=== PATIENT | female | born 1990 | race Hispanic/Latino ===

== ENCOUNTER 2020-05-22 14:44 | Outpatient (CLI) | payer OTHER ==
--- NOTE | 2020-05-22 15:33 | ULT ---
OB ULTRASOUND: HISTORY: anatomy FINDINGS: A single live intrauterine gestation is seen with measurements corresponding to an estimated gestatio nal age of 19 weeks 2 daysand SHYANNE at 10/14/2020. The estimated weight measures 58 g or 9 ounces (4% by Hadlock criteria). biometry: BPD: 4.5 x 3 cm, 19 weeks 5 days HC: 16.61 cm, 19 weeks 3 days AC: 12.62 cm, 18 weeks 2 days FL: 3.0 cm, 19 weeks 2 days heart rate: 155bpm Placenta: Anterior Placenta previa: No Amniotic fluid: Adequate Cervical length: 3.9cm A three-vessel cord, cord insertion, kidneys, urinary bladder, stomach, 4 chambered heart, late ral ventricles, cerebellum, spine, lips/nose, upper and lower extremities are visualized. No definite anomalies are seen. IMPRESSION: Single live intrauterine gestation of 19 weeks 2 daysestimated gestational age and SHYANNE at 10/04/2020
== END 2020-05-22 14:45 | disposition home or self-care (01) ==
LOC: BICULT 14:44
PROVIDERS: ATTEND Family Medicine
DX: O09.892 Supervision of other high risk pregnancies, second trimester (principal); Z3A.19 19 weeks gestation of pregnancy
CPT/HCPCS: 76805

== ENCOUNTER 2020-09-28 08:01 | Outpatient (CLI) | payer OTHER ==
[2020-09-29 11:10] LABS: SARS-CoV-2 MS2 Positive; SARS-CoV-2 N Gene Negative; SARS-CoV-2 S Gene Negative; SARS-CoV-2 by NAA Not Detected (NotDetected); SARS-CoV-2 orf1ab Negative
== END 2020-09-28 08:02 | disposition home or self-care (01) ==
LOC: LABBT 08:01
PROVIDERS: ATTEND Family Medicine
DX: Z20.828 Contact with and (suspected) exposure to other viral communicable diseases (principal)
CPT/HCPCS: 87635; U0003

== ENCOUNTER 2020-10-02 10:05 | Inpatient (IN) | payer MEDICAID, OTHER, SELFPAY ==
[2020-10-02 11:04] VITALS: BMI 35.2
[2020-10-02] MEDS ORDERED: Famotidine/PF 20 mg/2ml Vial SLOW IVP PRN (11:04)
[2020-10-02] MEDS ORDERED: Ondansetron PF 4 MG/2 ML Vial IVP PRN ×2 (11:04→12:54)
[2020-10-02] MEDS ORDERED: Bicitra 30 ML UDCUP PO PRN (11:04)
[2020-10-02] MEDS ORDERED: hydrALAZINE 20 MG/ML VIAL SLOW IVP PRN ×2 (11:04→14:49)
[2020-10-02] MEDS ORDERED: Promethazine HCl 25 MG/ML VIAL IM PRN ×3 (11:04→14:49)
[2020-10-02] MEDS ORDERED: Lactated Ringer's 1,000 ML IV SCH (11:04)
[2020-10-02] MEDS ORDERED: CEFAZOLIN 2 GM in Premix Bag 1 BAG IVPB SCH (11:04)
[2020-10-02 11:28] LABS: Hemoglobin 12.3 g/dL (12.0-16.0); Mean Corpuscular HGB CONC 34.7 g/dL (32.0-36.0); Mean Corpuscular Hemoglobin 28.5 pg (27.0-31.0); Mean Corpuscular Volume 82.2 fL (78.0-98.0); Mean Platelet Volume 8.7 fL (7.4-10.4); Platelet Count 203 thou/uL (130-400); RBC Distribution Width 13.9 % (11.5-14.5); Red Blood Cell (RBC) Count 4.32 mill/uL (4.20-5.40); White Blood Cell (WBC) Count 9.1 thou/uL (4.8-10.8)
[2020-10-02] MEDS ORDERED: Morphine PF 10 MG/10 ML VIAL ONE (11:43)
[2020-10-02] MEDS ORDERED: ePHEDrine 50 MG/ML VIAL ONE (11:43)
[2020-10-02] MEDS ORDERED: PHENYLEPHRINE-NS 100 MCG/ML 10 ML SYRINGE ONE (11:43)
[2020-10-02] MEDS ORDERED: Oxytocin 10 UNITS/ML VIAL ONE (11:43)
[2020-10-02] MEDS ORDERED: L&D-Morphine 4 MG/ML VIAL SLOW IVP PRN (11:49)
[2020-10-02] MEDS ORDERED: HYDROmorphone 2 MG/ML VIAL SLOW IVP PRN (11:49)
[2020-10-02] MEDS ORDERED: Ondansetron HCl/PF 4 MG/2 ML Vial IVP PRN (11:49)
[2020-10-02] MEDS ORDERED: Meperidine HCl/PF 25 MG/ML VIAL SLOW IVP PRN (11:49)
[2020-10-02 11:58] LABS: Hep B Surf Ag Non-Reactive S/CO (NonReactive); Syphilis Antibody Nonreactive (Nonreactive); Syphilis Antibody Index 0.02 S/CO (<1.00 Non-Reactive)
[2020-10-02] MEDS ORDERED: Ketorolac Tromethamine 30 MG/ML VIAL IVP SCH ×2 (12:00→18:00)
[2020-10-02] MEDS ORDERED: Ondansetron PF 4 MG/2 ML Vial ONE (12:29)
[2020-10-02] MEDS ORDERED: Lidocaine 1% (PF) 30 ML VIAL ONE (12:45)
[2020-10-02] MEDS ORDERED: Naloxone HCl 0.4 mg/ml Vial IV PRN (12:54)
[2020-10-02] MEDS ORDERED: Ketorolac Tromethamine 30 MG/ML VIAL IVP PRN (12:54)
[2020-10-02] MEDS ORDERED: Naloxone HCl 0.4 mg/ml Vial IVP PRN ×2 (12:54)
[2020-10-02] MEDS ORDERED: Promethazine HCl 25 MG SUPP PR PRN (12:54)
[2020-10-02] MEDS ORDERED: Communication Order-Pharmacy FS SCH (13:00)
[2020-10-02] MEDS ORDERED: diphenhydrAMINE 50 MG/ML VIAL ONE (13:42)
[2020-10-02] MEDS: diphenhydrAMINE 50 MG/ML VIAL IVP PRN ×2 (13:46→17:10)
[2020-10-02] MEDS ORDERED: Ketorolac Tromethamine 30 MG/ML VIAL ONE (14:40)
[2020-10-02] MEDS ORDERED: Bisacodyl 10 MG SUPP PR PRN (14:49)
[2020-10-02] MEDS ORDERED: NS / Oxytocin 40 units/1000ml 1,000 ML IV SCH (14:49)
[2020-10-02] MEDS ORDERED: Lanolin Ointment 7 GM TUBE TOP PRN (14:49)
--- NOTE | 2020-10-02 16:02 | PDOC.OPDEL ---
OB Operative/Delivery Note - Additional Findings/Plan Compilations/Other Findings: Date of Procedure: 10/02/2020 Primary Surgeon: Dr. Manuel Chapman Mold Filler Surgeon: Dr. Magdaleno Perkins Procedure: Repeat low transverse caesarean section Preoperative Diagnosis: 1) Repeat Postoperative Diagnosis: 1) same as above Anesthesia: spinal Indications: The patient is a 30 year old G3,P2 female at 39.0 weeks gestation who presents for a repeat scheduled . Procedure in Detail: After risks, benefits, and alternatives were explained to the patient, she gave informed consent. Pre-operative antibiotics included Cefazolin 2 gram IV. The patient was taken to the operating room and spinal a nesthesia was initiated. She was placed in the supine position with a left tilt and prepped and draped in usual sterile fashion. A Pfannenstiel incision was made with a scalpel and carried down to the level of the fascia which was sharply nicked. The fascial cut was extended bilaterally with Olguin sissors. The inferior and superior edges of the cut fascial edges were elevated with Regina clamps and the underlying rectus muscles were sharply and bluntly dissected free. The recti were divided digitally and retracted manually. The peritoneum was entered bluntly and retracted manually. Bladder blade was placed. A low transverse score was made with the scalpel and the uterus was entered in the midline with the scalpel. Clear fluid was seen. The hysterotomy was extended manually. The infant was noted to be vertex and was easily delivered by fundal pressure. Cord clamped and cut and grossly normal female was handed to waiting nurse. Cord blood was obtained. Placenta was manually extracted, found to be intact with 3 vessel cord and discarded. The uterus was externalized and the endometrium was curetted with a dry lap. Bladder blade was replaced and the uterus was closed with a running locking #1 monocryl suture. Following this hemostasis was noted. A layer of seprafilm was placed along the incision and anterior aspect of the uterus. The abdomen was irrigated with saline and sucti oned free of clots. The uterus was internalized and the hysterotomy was again noted to be hemostatic. The peritoneum was closed with a loose running 3-0 vircyl. The fascia was closed with a running non-locking 0-PDS suture. The subcutaneous tissue was irrigated and approximated using interrupted 2-0 plain sutures. The skin was approximated with georgina and a pressure dressing was placed. All counts were correct. The patient tolerated the procedure well and was taken to the recovery room in stable condition. Quantified Blood Loss: 650 ml Complications: None Specimens: Cord blood sent to lab for blood type Findings: Grossly normal female infant with Apgars of 8 and 9. Grossly normal placenta with 3 vessel cord discarded. Drains: Dinh to gravity draining clear urine
[2020-10-02] MEDS: Simethicone Chewable 80 MG TAB PO PRN (20:34)
[2020-10-02] MEDS: Ketorolac Tromethamine 30 MG/ML VIAL IVP SCH (20:37)
[2020-10-02] MEDS: Ferrous Sulfate 325 MG TAB PO SCH (22:03)
[2020-10-03] MEDS: diphenhydrAMINE 50 MG/ML VIAL IVP PRN (00:04)
[2020-10-03] MEDS: Simethicone Chewable 80 MG TAB PO PRN ×4 (00:04→20:19)
[2020-10-03] MEDS ORDERED: Meperidine HCl/PF 25 MG/ML VIAL IM PRN (01:00)
[2020-10-03] MEDS ORDERED: HYDROcodone/Acetaminophen 5/325 mg Tablet PO PRN (01:00)
[2020-10-03] MEDS: Ketorolac Tromethamine 30 MG/ML VIAL IVP SCH ×2 (03:43→09:47)
[2020-10-03 07:29] LABS: Hemoglobin 11.3 g/dL (12.0-16.0); Mean Corpuscular Hemoglobin 28.4 pg (27.0-31.0); Mean Corpuscular Volume 83.7 fL (78.0-98.0); Mean Platelet Volume 8.5 fL (7.4-10.4); Platelet Count 186 thou/uL (130-400); RBC Distribution Width 13.7 % (11.5-14.5); Red Blood Cell (RBC) Count 3.98 mill/uL (4.20-5.40); White Blood Cell (WBC) Count 7.7 thou/uL (4.8-10.8)
[2020-10-03] MEDS ORDERED: Adacel (T-DAP) 0.5 ML SYRINGE IM ONE (09:00)
[2020-10-03] MEDS ORDERED: Sodium Chloride 0.9% 10 ML ONE (09:44)
[2020-10-03] MEDS: Prenatal Vitamin 1 TAB PO SCH (09:47)
[2020-10-03] MEDS: Ferrous Sulfate 325 MG TAB PO SCH ×2 (09:55→19:37)
[2020-10-03] MEDS: HYDROcodone/Acetaminophen 5/325 mg Tablet PO PRN ×3 (12:03→20:17)
[2020-10-03] MEDS: Ibuprofen 800 MG TAB PO SCH ×2 (15:31→23:07)
[2020-10-03] MEDS: Polyethylene Glycol 3350 17 GM Packet PO SCH (18:40)
[2020-10-04] MEDS: HYDROcodone/Acetaminophen 5/325 mg Tablet PO PRN ×5 (00:39→19:24)
[2020-10-04] MEDS: Simethicone Chewable 80 MG TAB PO PRN ×3 (04:54→19:23)
[2020-10-04] MEDS: Ibuprofen 800 MG TAB PO SCH ×3 (06:37→21:34)
[2020-10-04] MEDS: Ferrous Sulfate 325 MG TAB PO SCH (08:17)
[2020-10-04] MEDS: Prenatal Vitamin 1 TAB PO SCH (08:22)
[2020-10-04] MEDS: Polyethylene Glycol 3350 17 GM Packet PO SCH (17:32)
[2020-10-05] MEDS: Ferrous Sulfate 325 MG TAB PO SCH ×2 (01:09→08:33)
[2020-10-05] MEDS: Simethicone Chewable 80 MG TAB PO PRN ×2 (02:32→08:35)
[2020-10-05] MEDS: HYDROcodone/Acetaminophen 5/325 mg Tablet PO PRN ×3 (02:33→17:57)
[2020-10-05] MEDS: Ibuprofen 800 MG TAB PO SCH ×2 (05:40→13:47)
[2020-10-05 08:09] VITALS: BP 112/72; TEMP 97.6
[2020-10-05] MEDS: Prenatal Vitamin 1 TAB PO SCH (08:35)
[2020-10-05] MEDS: Polyethylene Glycol 3350 17 GM Packet PO SCH (18:07)
== END 2020-10-05 18:28 | disposition home or self-care (01) | DRG 788 ==
LOC: L&D 10:05 → 3SW 15:29
PROVIDERS: ADMIT Family Medicine; ATTEND Family Medicine
PROC: 10D00Z1 Extraction of Products of Conception, Low, Open Approach (ICD-10-PCS; principal; 2020-10-02)
DX: O34.219 Maternal care for unspecified type scar from previous cesarean delivery (principal); Z3A.39 39 weeks gestation of pregnancy; Z37.0 Single live birth
CPT/HCPCS: 36415; 51702; 85027; 86780; 86850; 86900; 86901; 87340; J1200; J1885; J2001; J2270; J2405; J3490